=== PATIENT | male | born 1950 | race Caucasian/White ===

== ENCOUNTER 2022-08-21 12:44 | Emergency (ER) | payer MEDICARE, OTHER ==
[~2022-08-21] VITALS: Ht 177.8 cm; Wt 86.9 kg
== END 2022-08-21 13:25 | disposition home or self-care (01) ==
LOC: FSED 12:51
DX: K59.00 Constipation, unspecified (principal); N40.0 Benign prostatic hyperplasia without lower urinary tract symptoms; I10 Essential (primary) hypertension; E11.9 Type 2 diabetes mellitus without complications
CPT/HCPCS: 99282

== ENCOUNTER 2023-01-30 13:51 | Emergency (ER) | payer MEDICARE, OTHER ==
[~2023-01-30] VITALS: Ht 177.8 cm; Wt 90.3 kg
[2023-01-30] MEDS ORDERED: FINASTERIDE5 MG PO (14:33)
[2023-01-30] MEDS ORDERED: FLOMAX0.4 MG PO (14:33)
[2023-01-30] MEDS ORDERED: HYDROCHLOROTHIA25 MG PO (14:33)
[2023-01-30] MEDS ORDERED: [UNRECOGNIZED DRUG - OTHER] PO (14:33)
[2023-01-30] MEDS ORDERED: NAFTIN45 G1 (14:33)
[2023-01-30] MEDS ORDERED: ATORVASTATIN CA20 MG PO (14:33)
[2023-01-30] MEDS ORDERED: VOLTAREN ARTHRI20 GM (14:33)
[2023-01-30] MEDS ORDERED: METOPROLOL SUCC50 MG PO (14:33)
[2023-01-30] MEDS ORDERED: METFORMIN HCL500 M2 PO (14:33)
[2023-01-30] MEDS ORDERED: VITAMIN C500 MG PO (14:33)
[2023-01-30] MEDS ORDERED: COQ1050 MG (14:33)
[2023-01-30] MEDS ORDERED: MULTIPLE VITAM1 EAC1 (14:33)
[2023-01-30] MEDS ORDERED: FISH OIL 1,0001 EAC3 (14:33)
== END 2023-01-30 14:49 | disposition home or self-care (01) ==
LOC: FSED 13:56
DX: R33.9 Retention of urine, unspecified (principal); I10 Essential (primary) hypertension; E11.9 Type 2 diabetes mellitus without complications; E78.5 Hyperlipidemia, unspecified; F17.210 Nicotine dependence, cigarettes, uncomplicated
CPT/HCPCS: 51700; 81003; 87086; 99283